=== PATIENT | male | born 1940 | race Caucasian/White ===

== ENCOUNTER 2025-01-25 07:34 | Day surgery (SDC) | payer MEDICARE ==
[2025-01-17 11:05] LABS: MEAN PLATELET VOLUME 7.8 FL (7.4-10.4); PRE OP HEMATOCRIT 41.6 % (42.0-52.0); PRE OP HEMOGLOBIN 14.5 g/dL (14.0-17.9); PRE OP PLATELET COUNT 194 X10'3 (140-440); PRE OP WHITE BLOOD COUNT 3.6 10'3 (4.8-10.8); RED CELL DISTRIBUTION WIDTH 14.5 % (11.5-14.5)
[2025-01-17 11:23] LABS: CREATININE 0.77 MG/DL (0.60-1.10); PRE OP ALT 50 U/L (30-65); PRE OP ANION GAP 3 (8-16); PRE OP AST 41 U/L (10-37); PRE OP BILIRUB, TOTAL 0.5 MG/DL (0.0-1.0); PRE OP GLUCOSE 134 MG/DL (70-104); PRE OP POTASSIUM 4.2 MMOL/L (3.4-5.1); PRE OP SODIUM 134 MMOL/L (135-145); TOTAL CARBON DIOXIDE 33.1 MMOL/L (24-32); eGFR > 90 ML/MIN
[2025-01-25] VITALS (17 sets, daily range): BP systolic 152–179; BP diastolic 76–99; PULSE 65–85; RESP 9–16; TEMP 96.7; O2SAT 93–99
[~2025-01-25] VITALS: Ht 172.7 cm; Wt 69.4 kg
[2025-01-25] MEDS: CefTRIAXone/D5W-Rocephin 1gm 50 ML IV ONE (05:30)
[~2025-01-25 07:34] MED LIST: ALBU8HFA PO; CETI10CA PO; FINA5TAB11 PO; TAMS-55 PO; THY60T PO; albuterol 2.5 MG/3 ML nebule NEB PRN
[2025-01-25] MEDS: ringers solution, lacted 1,000 ML IV SCH (08:29)
[2025-01-25] MEDS ORDERED: propofol inj 20 ML IV ONE ×2 (09:10→11:56)
[2025-01-25] MEDS ORDERED: fentaNYL/PF 50MCG/1 ML 2ML syringe ONE (09:10)
[2025-01-25] MEDS ORDERED: iohexol 300 MG/1 ML 50ml polymer ONE (09:27)
[2025-01-25] MEDS ORDERED: morphine 4 MG/ML inj SYRINge IV PRN (10:15)
[2025-01-25] MEDS ORDERED: acetaminophen 1,000mg/100ml IV 100 ML IV PRN (10:15)
[2025-01-25] MEDS ORDERED: ringers solution, lacted 1,000 ML IV SCH (10:15)
[2025-01-25] MEDS ORDERED: labetalol 20mg/4ml (5mg/ml) syringe IV PRN (10:15)
[2025-01-25] MEDS ORDERED: ondansetron/PF 4mg/2ml inj IV PRN (10:15)
[2025-01-25] MEDS ORDERED: hydrALAZINE 20mg/ml inj. IV PRN (10:15)
[2025-01-25] MEDS ORDERED: HYDROmorphone/PF 0.2 MG/ML SYRINGE IV PRN ×2 (10:15)
[2025-01-25] MEDS ORDERED: ePHEDrine 50MG/ML INJ. ONE (11:56)
--- NOTE | 2025-01-25 12:01 | OPERATIVE REPORT ---
Operative Report Providers to ~ Date of Procedure: Jan 25, 2025 Pre-Operative Diagnosis: BPH, bladder cancer history Post-Operative Diagnosis 1. BPH. 2. Bladder tumor. Procedure Performed 1. Trans urethral resection of the prostate. 2. Bilateral retrograde pyelography. 3. Trans urethral resection of bladder tumor measuring approximately 1 cm. Surgeon: Ranjeet Maravilla MD Seismograph Operator Helper None. Anesthesiologist: Zackary Ramos Type of Anesthesia: General Findings: Endoscopic findings: The patient demonstrated significant enlargement of the prostate gland with obstructing lateral lobes along the entire prostate fossa and a significant circumferential intravesical prostatic protrusion which completely obscured view of the trigone. View of the trigone was not possible until sufficient prostate tissue had been resected. 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 These tumors were ablated and a ureteral stent was placed. Fluoroscopic findings: Bilateral retrograde pyelography demonstrated significant J hooking of the distal ureters but otherwise a normal ureteral course and caliber with a normal-appearing upper tract was observed. Complications None. Estimated Blood Loss: Minimal. Specimen Removed: Prostate chips. Description of Procedure: The patient was under the effects of general anesthesia and in dorsal lithotomy with his genitals prepped and draped in sterile fashion. We entered the urethra with a 26 Haitian continuous flow resectoscope we appreciated significant obstruction from enlarged lateral lobes, and a significantly elongated prostatic urethra with significant circumferential intravesical prostatic protrusion. Moderate to severe trabeculations with shallow diverticula were observed the along the posterior wall and lateral adams. The trigone itself was not immediately appreciated due to overhanging prostate tissue which obscured view of the trigone. We began resecting prostate tissue starting at midline to remove median lobe tissue which was then extended into the prostate fossa up to the level of the verumontanum in order to allow for improved saline flow. We then began rese cting the lateral prostate lobes starting on the patient's right and moving onto the patient's left. Lastly we resected overhanging tissue at midline. Our resection was carried out by starting just inside the bladder neck and extending up to the verumontanum in order to prevent injury to the bladder neck and external urinary sphincter respectively. The prostate capsule was never encountered or perforated. Deeper resection was performed until sufficient patency of the prostate fossa was observed visually. Point electrocautery was performed in order to attain hemostasis and prostate chips were evacuated from the bladder. With resection of prostate tissue we were now able to better inspect the trigone and ureteral orifices were orthotopic. The right ureteral orifice however demonstrated superficial papillary tumors medial to the orifice and extending up to the orifice itself. These tumors were simply ablated using thermal cauterizing energy. Once all the tumors had been treated we performed bilateral retrograde pyelography which revealed revealed the above-mentioned findings. Due to the proximity of our treatment area to the right ureteral orifice we elected to leave a ureteral stent. A wire was advanced into the upper tract and over this wire a 4.8 Haitian by 24 cm stent was placed with good coiling observed proximally and distally following deployment. We then removed our resectoscope and placed a 22 Haitian hematuria catheter over a guidewire into the bladder with 30 mL instilled into the retaining balloon. The patient's catheter was placed to continuous irrigation and his irrigant appeared crystal clear. The patient was awoken from his general anesthetic and taken to the postanesthesia care unit in stable condition. Counts repoted as correct: Yes RANJEET MARAVILLA MD Jan 25, 2025 12:00
[2025-01-25 13:16] LABS: ISTAT ANION GAP 12 (8-12); ISTAT BUN 10 mg/dL (7-18); ISTAT CL 106 mmol/L (99-107); ISTAT CREATININE 0.5 mg/dL (0.8-1.3); ISTAT GLUCOSE 104 mg/dL (70-104); ISTAT HGB 11.6 g/dl (14.0-17.9); ISTAT Hct 34 %PCV (42-52); ISTAT IONIZED CALCIUM 1.02 mmol/L (1.03-1.32); ISTAT K 4.3 mmol/L (3.5-5.1); ISTAT NA 140 mmol/L (135-145); ISTAT TOTAL CO2 22 mmol/L (24-32); ISTAT eGFR > 90 ML/MIN; POC BUN/CREATININE RATIO 20.0 (5.4-32.0)
--- NOTE | 2025-01-26 17:45 | PATHOLOGY REPORT ---
[facility] [address] [place] [address] SURGICAL PATHOLOGY REPORT CaseNumber: [id number] Surgeon:Ranjeet Beth M.D. CLINICAL INFORMATION CLINICAL INFORMATION: Benign prostatic hyperplasia. DIAGNOSIS DIAGNOSIS: PROSTATE; TRANSURETHRAL RESECTION - GLANDULAR AND STROMAL HYPERPLASIA (BPH). COMMENT NOTE: There was a microfocal area of basaloid urothelium most consistent with tangential sectioning. Immunoperoxidase studies were performed to rule out urothelial dysplasia. IHC findings were supportive of the light microscopic interpretation. MICROSCOPIC DESCRIPTION MICROSCOPIC DESCRIPTION: Ten slides are examined. Present are chips of prostate tissue which show glandular and stromal hyperplasia, predominantly stromal hyperplasia. There is some urothelial sampling on some of the chips. A microfocal area of basaloid urothelium is noted. Prostatic adenocarcinoma is not identified. Immunoperoxidase studies for the following antigens are as follows: CK20 .... largely negative P53 ..... Negative for overexpression Ki-67 ... Low labeling index,less than 2% (st) GROSS DESCRIPTION GROSS DESCRIPTION: Received in a container of formalin labeled with the patient's name, number, and "prostate chips" is a 32 g aggregate of strips and pieces of pink zambrano tissue. Signs And Displays Salesperson section are submitted as [id number]. The time at which the specimen was removed was not provided. The time at which the specimen was placed in formalin was not provided. Electronically signed by: Jos Aguirre M.D. 01/26/2025 5:17:00 PM
== END 2025-01-25 14:47 | disposition home or self-care (01) ==
LOC: PAS 07:34
PROVIDERS: ATTEND Urology
DX: N40.0 Benign prostatic hyperplasia without lower urinary tract symptoms (principal); D49.4 Neoplasm of unspecified behavior of bladder; J45.909 Unspecified asthma, uncomplicated; R73.09 Other abnormal glucose; Z85.51 Personal history of malignant neoplasm of bladder
CPT/HCPCS: 36415; 52234; 52332; 52601; 74420; 80047; 80053; 82948; 85025; 88305; 88341; 88342; 88360; A4355; A4618; A6258; C2617; J0696; J2270; J2704; J3010; J3490; J7030; J7120; Q9967; Z7506; Z7508; Z7512; Z7610